=== PATIENT | male | born 1995 | race Caucasian/White ===

== ENCOUNTER 2022-06-20 21:19 | Emergency (ER) | payer OTHER ==
[~2022-06-20] VITALS: Ht 175.3 cm; Wt 93.0 kg
[2022-06-20] MEDS ORDERED: CEFAZOLIN SODIUM 1 GM VIAL IVP STA (22:18)
[2022-06-20] MEDS ORDERED: DIPH,PERTUSS(ACELL),TET VAC/PF 0.5 ML VIAL IM ONE (22:30)
[2022-06-20] MEDS ORDERED: TETANUS/DIPHTHERIA TOXOID [ADULT] 0.5 ML VIAL IM ONE ×2 (22:30→22:50)
[2022-06-21] MEDS ORDERED: CEPH500B PO (00:38)
[2022-06-21 01:03] VITALS: BP 135/85
== END 2022-06-21 01:02 | disposition home or self-care (01) ==
LOC: EDH 21:19
DX: S71.111A Laceration without foreign body, right thigh, initial encounter (principal); Z88.6 Allergy status to analgesic agent; X58.XXXA Exposure to other specified factors, initial encounter; Y93.89 Activity, other specified; Y92.89 Other specified places as the place of occurrence of the external cause; Y99.8 Other external cause status
CPT/HCPCS: 99284; 12032; 96374; 90714; 73552; 90471; J0690